=== PATIENT | female | born 2000 ===

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

== ENCOUNTER 2023-06-13 09:05 | Outpatient (CLI) | payer OTHER | END 2023-06-13 09:14 | disposition home or self-care (01) | LOC: SONOGRAMA 09:05 | PROVIDERS: ATTEND Obstetrics & Gynecology Gynecology | DX: E04.2 Nontoxic multinodular goiter (principal) ==